=== PATIENT | male | born 1940 ===

== ENCOUNTER 2020-02-22 11:02 | Emergency (ER) | payer MEDICARE, SELFPAY ==
[2020-02-22 11:16] VITALS: BP 148/68; PULSE 68; RESP 17; TEMP 36.4; O2SAT 99; BMI 31.4
[2020-02-22] MEDS: Lidocaine HCl 2 % MPF 5 ML VIAL INFILTRATI ×2 (11:36→11:38)
--- NOTE | 2020-02-22 11:37 | ED_ITS ---
HPI - General Adult General Chief complaint: General Medical Stated complaint: R THUMB INFECTION Time Seen by Provider: 02/22/20 11:24 Source: patient Mode of arrival: ambulatory Limitations: no limitations History of Present Illness HPI narrative: Patient presents to ED for right thumb pain. Patient states lateral aspect of right thumb has been painful for one week. patient states he was on doxycyxline and the pain has persisited. patient states no recent blunt trauma to the hand. Related Data Previous Rx's Medication Instructions Recorded cephalexin [Keflex] 500 mg PO QID #28 cap 02/22/20 naproxen 500 mg PO BID PRN #20 tab 02/22/20 Allergies Allergy/AdvReac Type Severity Reaction Status Date / Time No Known Allergies [NKA] Allergy Verified 02/22/20 11:20 Review of Systems Review of Systems: Yes all other systems are reviewed and are negative Constitutional: Constitutional: Reports as per HPI and Reports no additional constitutional complaints Eyes: Eyes: Reports as per HPI and Reports no additional eye complaints ENT: Reports system reviewed and no additional complaints, except as documented and Reports as per HPI Cardiovascular: Cardiovascular: Reports as per HPI and Reports no additional cardiovascular complaints Respiratory: Respiratory: Reports as per HPI and Reports no additional respiratory complaints Gastrointestinal: Gastrointestinal: Reports as per HPI, Reports no additional gastrointestinal complaints and Denies abdominal pain Musculoskeletal: Musculoskeletal: Reports no additional musculoskeletal complaints Comments: Right thumb infection Neurologic: Reports system reviewed and no additional complaints, except as documented and Reports as per HPI Psychiatric: Psychiatric: Reports no additional psychiatric complaints and Reports as per HPI [facility] Past Medical History Medical History (Updated 02/22/20 @ 12:04 by BEVERLY Mantilla) Arthritis Surgical History (Updated 02/22/20 @ 11:19 by Marcie Henning RN) History of hip replacement Social History Social History Advance Directives: No Advance Directives Information Provided: No Physical Exam Vital Signs: Vital Signs: Vital Signs Temp Pulse Resp BP Pulse Ox 02/22/20 11:16 97.5 F 68 17 148/68 H 99 Body Mass Index 31.4 Const: General: cooperative, healthy appearing, comfortable, no acute distress, well developed, alert and awake Orientation/consciousness: patient oriented x3 HENMT: Head: Yes normal to inspection and Yes No palpable skull fracture present Eyes: General: appearance normal, both eyes and all related structures Neck: Neck: Yes normal visual inspection, Yes full ROM, Yes no lymphadenopathy and Yes no meningeal signs Chest: Chest palpation & inspection: normal inspection of the chest, normal palpation of entire chest wall and no localized rib tenderness Resp: Effort & Inspection: normal respiratory effort, able to speak in complete sentences, normal respiratory pattern, no grunting and not labored Auscultation: clear to auscultation bilaterally, no crackles, no rales, no rhonchi and no wheezes Cardio: Jugular venous distension: no JVD Heart sounds: S1 normal heart sound present and S2 normal heart sound present GI: Inspection: Yes normal to inspection, No abdominal wall ecchymosis and No Abdominal wall edema Percussion: Yes normal to percussion Auscultation: normal bowel sounds : General: No CVA tenderness and Yes no CVA tenderness Back/Spine/Pelvis: Back: no CVA tenderness, No CVA tenderness and No back tenderness Skin: Other: erythema on lateral side of right thumb Neuro: General: patient oriented x3, gait normal, no meningeal signs and CN's II-XI intact bilaterally Cranial nerves: Yes CN's II-XII intact bilaterally Extrem: Other: right thumb has slight erythema on the lateral aspect as tender. Negative for swelling of the thumb or any pus drainage. Patient has complete range of motion of thumb. Capillary refill intact. Course Course Course Narrative: Will perform I and D of paronychia. Physical exam does not indicate felon, arterial occlusion, or tenosynovitis. Patient has complete range of motion of all fingers including tone. Capillary refills are intact. Hand is not swollen. thumb is not swollen. Radial pulses intact Reevaluation(s) Reevaluation #1: Negative for any drainage of pus just slight blood. 6 mL of lidocaine 2% was used to anesthetize thumb. Size 11 blade was used for incision. Before anesthesia was performed Betadine and normal saline was used to clean the area. Patient form to follow with PCP. Patient does with Keflex antibiotics. patient states up-to-date with tetanus. Time: 12:02 Medical Decision Making [facility] Narrative Medical decision making narrative: parynochia Discharge Plan Discharge Clinical Impression: Paronychia of finger Patient Disposition: Home, Self-Care Instructions: Paronychia (ED) Additional Instructions: Return to the ED for increased swelling, redness, pus discharge, foul odor, fever, or chills. Prescriptions: New cephalexin [Keflex] 500 mg capsule 500 mg PO QID Qty: 28 RF: 0 naproxen 500 mg tablet 500 mg PO BID PRN (Reason: pain) Qty: 20 RF: 0 Referrals: Ministerio Gardner DO, MD [Primary Care Provider] - 2 days (thumb paronychia) Interventions: ED Discharge Assessment Last Done: 02/22/20 12:25 Discharge Date/Time: 02/22/20 12:26 Print Language: Telugu
== END 2020-02-22 12:26 | disposition home or self-care (01) ==
PROVIDERS: Emergency Provider Emergency Medicine; PCP Internal Medicine
DX: L03.011 Cellulitis of right finger (principal); M79.641 Pain in right hand
CPT/HCPCS: 10060; 99283; 99284

== ENCOUNTER 2020-03-10 16:36 | Emergency (ER) | payer MEDICARE, SELFPAY ==
--- NOTE | 2020-03-10 | XR_ITS ---
EXAMINATION: XR FINGER, RIGHT CLINICAL INFORMATION: Foreign body of the thumb COMPARISON: None TECHNIQUE: 3 views of the right thumb. FINDINGS: There is a faintly visible, thin, approximately 2 mm long opacity in superficial subcutaneous tissues of the anteromedial thumb. This projects anterior to the proximal phalanx of the thumb on the lateral view. Otherwise, no evidence of radiopaque foreign body. No acute fractures. 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 Osteoarthritis is mild at several MCP joints, and is moderate to severe at many interphalangeal joints. At the degenerated thumb interphalangeal joint, there is nonuniform joint space loss and marginal osteophyte formation. Old, healed fracture of the fifth metacarpal. XR/XR finger RT min 2V IMPRESSION: * No acute osseous injury. 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 * There appears to be a very small, faintly visible linear foreign body in superficial subcutaneous tissues of the thumb.
[2020-03-10 16:43] VITALS: BP 132/76; PULSE 70; RESP 16; TEMP 36.6; O2SAT 99; BMI 32.3
--- NOTE | 2020-03-10 19:54 | PC.NURSE ---
PT WENT IN TO REST ROOM AND SCRATCHED OUT SMALL FB FROM OWN FINGER PT STATES HE FELT RELEIF. PT WOUND TO RIGHT THUMB CLEANED WITH BATIDINE AND NS AND ANTIBIOTIC APPLIED TO FINGER COVERED WITH BAND AID.
--- NOTE | 2020-03-10 19:56 | ED_ITS ---
HPI - Extremity Problem General Chief complaint: Extremity Problem Stated complaint: needle in thumb Time Seen by Provider: 03/10/20 18:04 Source: patient Mode of arrival: ambulatory Limitations: no limitations History of Present Illness HPI Narrative: feels like he has a superficial body in the fat pad of the right thumb. Unsure where it is skin is intact. 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 No redness, swelling or discharge. Location: right Radiation: none Relieving factors: immobilization Exacerbating factors: palpation Associated symptoms: denies other symptoms Related Data Previous Rx's Medication Instructions Recorded cephalexin [Keflex] 500 mg PO QID #28 cap 02/22/20 naproxen 500 mg PO BID PRN #20 tab 02/22/20 Allergies Allergy/AdvReac Type Severity Reaction Status Date / Time No Known Allergies [NKA] Allergy Verified 02/22/20 11:20 Review of Systems Review of Systems: Constitutional: No Weight loss, No Fever, No Chills, No Night Sweats, No Fatigue, No Malaise ENT/Mouth: No Hearing loss, No Ear Pain, No Nasal Congestion, No Sinus Pain Eyes: No Eye Pain, No Swelling, No Redness, No Foreign Body, No Discharge, No Vision Changes Cardiovascular: No Chest Pain, No SOB, No Dyspnea on Exertion, No Orthopnea, No Edema, No Palpitations Respiratory: No Cough, No Sputum, No Wheezing, No Smoke Exposure, No Dyspnea Musculoskeletal: No joint pain, No Myalgias, No Joint Swelling Skin: No Skin Lesions, No rash Neuro: No Weakness Psych:No Social Issues Heme/Lymph: No Bruising, No Bleeding,No Lymphadenopathy Endocrine: No Polyuria, No Polydipsia, No Temperature Intolerance Yes all other systems are reviewed and are negative [facility] Past Medical History Attestation statement: The following information was validated with the patient. Medical History (Updated 03/10/20 @ 19:57 by Mac Kan NP) Arthritis Surgical History (Updated 02/22/20 @ 11:19 by Marcie Henning RN) History of hip replacement Social History Social History Smoked in Last 30 Days: No Use of substances other than those prescribed or required for medical reasons: No Advance Directives: No Advance Directives Information Provided: Yes Physical Exam Vital Signs: Vital Signs: Last Vital Signs Temp 97.8 F 03/10/20 16:43 Pulse 70 03/10/20 16:43 Resp 16 03/10/20 16:43 BP 132/76 03/10/20 16:43 Pulse Ox 99 03/10/20 16:43 Body Mass Index 32.3 Reviewed Const: General: cooperative and healthy appearing; No acute distress or intoxicated appearing Nutritional Appearance: average body habitus Orientation/consciousness: patient oriented x3 HENMT: Head: Yes normal to inspection Ears: hearing grossly normal bilaterally Chest: Chest palpation & inspection: normal inspection of the chest Resp: Effort & Inspection: normal respiratory effort Skin: Other: no obvious open skin or injury General skin exam: no rashes or lesions noted Neuro: General: patient oriented x3 Extrem: General: Yes normal to inspection MDM - Extremity (Nontraumatic) MDM Narrative Medical decision making narrative: distal thumb with no obvious injury or foreign body. X-ray shows some irregularity in the proximal anterior thumb over the base but he has no pain or discomfort over this area he has primarily for the distal thumb. 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 Discharge Plan Discharge Clinical Impression: Superficial foreign body Patient Disposition: Home, Self-Care Instructions: Soft Tissue Foreign Body (ED) Prescriptions: No Action cephalexin [Keflex] 500 mg capsule 500 mg PO QID Qty: 28 RF: 0 naproxen 500 mg tablet 500 mg PO BID PRN (Reason: pain) Qty: 20 RF: 0 Referrals: Justin Thomas MD [Physician] - 1 week
== END 2020-03-10 20:13 | disposition home or self-care (01) ==
PROVIDERS: Emergency Provider Emergency Medicine
DX: S60.351A Superficial foreign body of right thumb, initial encounter (principal); M79.641 Pain in right hand; Y28.9XXA Contact with unspecified sharp object, undetermined intent, initial encounter; Y93.9 Activity, unspecified; Y92.9 Unspecified place or not applicable; Y99.0 Civilian activity done for income or pay; Z79.899 Other long term (current) drug therapy
CPT/HCPCS: 73140; 99283; 99284

== ENCOUNTER 2020-11-03 07:07 | Emergency (ER) | payer MEDICARE, SELFPAY ==
--- NOTE | ~2020-11-03 | CT_ITS ---
EXAMINATION: CT HIP WITHOUT CONTRAST, LEFT CLINICAL INFORMATION: LT HIP PAIN, FELL 4 WEEKS AGO COMPARISON: None TECHNIQUE: Multidetector volumetric imaging was obtained through the left hip without contrast. Multiplanar reformatted images in coronal and sagittal orientations were submitted. This CT examination was performed using dose optimization techniques as appropriate, variously including the following: *Automated exposure control *Adjustment of mA and/or kV according to patient size (this includes techniques or standardized protocols for targeted exams where dose is matched to indication/reason for exam; i.e. extremities or head) *Use of iterative reconstruction technique DLP: 275 mGy-cm FINDINGS: No acute or subacute fractures are identified at the left hip. There is [id number] osteoarthritis of the left hip with prominent acetabular osteophytes, nonuniform joint space narrowing, and foci of subchondral cystic change at the acetabular rim. 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 Subtle osseous bridging is present across the anterior osteophytes of the left SI joint. Bridging osteophytes are also present at the L5-S1 level, partially imaged. Pubic symphysis is unremarkable. Prominent enthesopathic spurs are present at the greater trochanter. Diverticulosis is present in the sigmoid colon. Prostate gland is enlarged, measuring 6.3 cm in diameter. Fatty replacement is present of the gluteus minimus. The left hamstring tendons are ill-defined at the ischial tuberosity origin with surrounding fat stranding, likely due to tear. Components of the semimembranosus remain intact, though the long head of the biceps femoris and the semitendinosus are likely at least partially avulsed. CT/CT hip LT wo con IMPRESSION: 1. No acute fracture or malalignment at the left hip. 2. Ill-defined tear of the left hamstring tendons at the ischial tuberosity origin, possibly a subacute injury. If patient's symptoms localize to this region, consider correlation with MRI for further assessment 3. Mild to moderate osteoarthritis in the left hip.
--- NOTE | ~2020-11-03 | US_ITS ---
EXAMINATION: US VENOUS ULTRASOUND WITH DOPPLER LOWER EXTREMITY, LEFT CLINICAL INFORMATION: Pain and swelling. Post trauma COMPARISON: None TECHNIQUE: Ultrasound of the deep veins is performed from the hip to the calf with compression sonography and color and pulse Doppler assessment. Spectral analysis with color-flow imaging is performed. FINDINGS: There is normal venous compression and respiratory variation and augmented flow. The visualized common femoral vein, superficial femoral vein, profunda femoral vein, popliteal vein, and the trifurcation region shows no evidence of deep venous thrombosis. There is no significant popliteal fossa cyst. The peroneal vein is not visualized visualized. There is a small lymph node in the groin measuring 2.9 x 0.6 x 2.8 cm. There is mild edema in the calf. If the patient's symptoms persist, followup ultrasound in 5 days 7 days might be of value to exclude proximal propagation from a non-visualized calf vein. US/US venous duplex LE LT IMPRESSION: No DVT demonstrated in the left lower extremity. There is mild edema in the calf with peroneal vein not seen.
--- NOTE | ~2020-11-03 | XR_ITS ---
EXAMINATION: LUMBAR SPINE AND PELVIS AND LEFT HIP X-RAY CLINICAL INFORMATION: Pain post fall COMPARISON: None TECHNIQUE: 3 views of the lumbar spine, one view of the pelvis and 2 views of the left hip FINDINGS: Lumbar spine: There is mild curvature of the lower lumbar spine to the right. Bone alignment is otherwise normal. No fracture or dislocation is seen. There is multilevel degenerative disc disease, degenerative spondylosis and facet arthritis. Secondary spinal stenosis should be considered. There may be arthritis at the left L5 transverse process/sacral articulation. There is evidence of atherosclerotic disease. Pelvis and left hip x-ray no fracture or dislocation is seen. There is a right hip replacement in satisfactory position. There is arthritis at the left hip joint with joint space narrowing and osteophyte formation. There are degenerative changes of the sacroiliac joints. Soft tissues are unremarkable. XR/XR hip LT min 2V IMPRESSION: Lumbar spine: Severe degenerative changes. No fracture seen. Pelvis and left hip x-ray: Degenerative changes. No fracture or dislocation seen.
--- NOTE | ~2020-11-03 | XR_ITS ---
EXAMINATION: LUMBAR SPINE AND PELVIS AND LEFT HIP X-RAY CLINICAL INFORMATION: Pain post fall COMPARISON: None TECHNIQUE: 3 views of the lumbar spine, one view of the pelvis and 2 views of the left hip FINDINGS: Lumbar spine: There is mild curvature of the lower lumbar spine to the right. Bone alignment is otherwise normal. No fracture or dislocation is seen. There is multilevel degenerative disc disease, degenerative spondylosis and facet arthritis. Secondary spinal stenosis should be considered. There may be arthritis at the left L5 transverse process/sacral articulation. There is evidence of atherosclerotic disease. Pelvis and left hip x-ray no fracture or dislocation is seen. There is a right hip replacement in satisfactory position. There is arthritis at the left hip joint with joint space narrowing and osteophyte formation. There are degenerative changes of the sacroiliac joints. Soft tissues are unremarkable. XR/XR lumbar spine 2-3V IMPRESSION: Lumbar spine: Severe degenerative changes. No fracture seen. Pelvis and left hip x-ray: Degenerative changes. No fracture or dislocation seen.
[2020-11-03 07:25] VITALS: BP 113/60; PULSE 68; RESP 12; TEMP 36.5; O2SAT 96; BMI 31.8
--- NOTE | 2020-11-03 07:36 | ED_ITS ---
HPI - Extremity Injury (Lower) General Chief Complaint: General Medical Stated Complaint: fall - hip pain Time Seen by Provider: 11/03/20 07:35 Source: patient Mode of arrival: ambulatory Limitations: no limitations History of Present Illness MD complaint: hip injury, thigh injury and fall Onset (ago): week(s) (3) Type of Injury: blunt Place: home Severity: moderate Relieving factors: nothing Exacerbating factors: weight bearing and movement Context: fall (slipped in the shower hit L hip on granite) Associated symptoms: swelling (hematoma that resolved) Other symptoms: none Treatments prior to arrival: other (PCP started tramadol and he has been trying CBD gummies with some relief) Related Data Previous Rx's Medication Instructions Recorded cephalexin [Keflex] 500 mg PO QID #28 cap 02/22/20 naproxen 500 mg PO BID PRN #20 tab 02/22/20 oxycodone 5 mg PO TID PRN #14 tab 11/03/20 Allergies Allergy/AdvReac Type Severity Reaction Status Date / Time No Known Allergies [NKA] Allergy Verified 02/22/20 11:20 Review of Systems Review of Systems: Constitutional : No Fever, No Chills ENT/Mouth : No Ear Pain, No Hoarseness, No sore throat Eyes: No Eye Pain, No Swelling, No Redness, No Foreign Body Cardiovascular : No Chest Pain, No SOB, pos L leg swelling Respiratory : No Cough, No Dyspnea Gastrointestinal : No Nausea, No Vomiting, No Diarrhea, No abdominal Pain Genitourinary : No Dysuria, No Hematuria Musculoskeletal : positive joint pain, No Myalgias, No Joint Swelling Skin : No Skin lacerations, No rash Neuro : No Weakness, No Numbness, No Loss of Consciousness, No Dizziness, No Headache Psych : No Anxiety/Panic, No Depression Heme/Lymph: no easy bruising, no Lymphadenopathy Endocrine : No Polyuria, No Polydipsia All other systems reviewed and are negative PMFSH Past Medical History Attestation statement: The following information was validated with the patient. Medical History Arthritis Surgical History History of hip replacement Social History Social History (Updated 11/03/20 @ 07:49 by Sobeida Moran DO) Alcohol intake: current Alcohol intake frequency: holidays/special occasions only Alcohol type: beer and wine Patient Tobacco Use Status: Never used Tobacco Use of substances other than those prescribed or required for medical reasons: No Advance Directives: Yes Advance Directives Information Provided: Yes Advance Directives on File: No Physical Exam Vital Signs: Vital Signs: Last Vital Signs Temp 97.7 F 11/03/20 09:03 Pulse 70 11/03/20 09:56 Resp 18 11/03/20 09:56 BP 147/87 H 11/03/20 09:56 Pulse Ox 97 11/03/20 09:56 Body Mass Index 31.8 Appearance: Alert. Oriented X3. No acute distress. Eyes: Pupils equal, round and reactive to light. ENT: Pharynx normal. Neck: Normal inspection. Neck supple. CVS: Normal heart rate and rhythm. Pulses normal. Respiratory: No respiratory distress. Breath sounds normal. Abdomen: Soft and nontender. Back: no vert point tto Skin: Skin warm and dry. Normal skin color. Normal skin turgor. Extremities: L hip ttp laterally, L calf mild swelling wtih calf ttp Neuro: Oriented X 3. No motor deficit. No sensory deficit. Course Course Course Narrative: given the degree of his pain will obtain CT scan to r/o occult fracture hamstring tendon injury evident will call his orthopedist for sooner important - will place in immobilizer 3 weeks post injury I cannot get him until november per office - he has had multiple surgeries with [facility] at this time given 3 weeks post I do no think he would benefit from knee immoblizer MDM - Extremity Injury (Lower) MDM Narrative Medical decision making narrative: 80 yo male with arthritis not on AC therapy comes in after mechanical fall at home 3 weeks ago he notes his L hip area has just not gotten better, he has not had xrays at this time, will obtain xrays of L hip/lumbar spine, given swelling in LLE will obtain DVT study, dispo per results and findings. Lab Data Result diagrams: 11/03/20 08:05 11/03/20 08:05 Labs: Lab Results 11/03/20 11/03/20 11/03/20 Range/Units 08:05 08:05 08:05 WBC 6.2 (4.8-10.8) X10*3/uL RBC 4.37 L (4.60-5.80) X10*6/uL Hgb 13.3 L (14.0-18.0) g/dl Hct 41.0 L (42-52) % MCV 93.8 (80-98) fL MCH 30.4 (27.0-33.0) pg MCHC 32.4 (31.0-36.0) g/dl RDW 13.4 (11.0-16.0) % Plt Count 268 (160-400) X10*3/uL MPV 9.1 L (9.4-12.4) fL Immature Gran % (Auto) 0.2 (0.0-0.4) % Neut % (Auto) 67.5 (45-73) % Lymph % (Auto) 18.9 L (20-40) % [place] % (Auto) 10.1 (2-11) % Eos % (Auto) 2.7 (0-4) % Baso % (Auto) 0.6 (0-2) % Lymph # (Auto) 1.2 (1.2-4.9) X10*3/uL [place] # (Auto) 0.6 (0.1-1.2) X10*3/uL Eos # (Auto) 0.2 (0.0-0.4) X10*3/uL Baso # (Auto) 0.0 (0.0-0.2) X10*3/uL Abs Immat Gran (auto) 0.01 (0.00-0.03) X10*3/uL Absolute Neuts (auto) 4.2 (2.0-8.3) X10*3/uL Absolute Nucleated RBC 0.000 (0.0-0.012) X10*3/uL Nucleated RBC % (auto) 0.0 (0.0-0.2) /100WBC PT 11.4 (9.9-13.0) SEC INR 1.0 (0.9-1.1) APTT 39.6 H (24.1-38.0) SEC Sodium 143 (135-145) mmol/L Potassium 5.0 (3.3-5.1) mmol/L Chloride 106 (96-108) mmol/L Carbon Dioxide 29 (22-29) mmol/L Anion Gap 13 (12-20) BUN 18 H (9-16) mg/dL Creatinine 1.05 (0.5-1.4) mg/dL Estim Creat Clear Calc 64.5 Estimated GFR > 60 Random Glucose 105 (60-115) mg/dL Calcium 9.4 (8.4-10.2) mg/dL Discharge Plan Discharge Clinical Impression: Traumatic rupture of hamstring tendon Qualifiers: Encounter type: sequela Laterality: left Qualified Code(s): S76.312S - Strain of muscle, fascia and tendon of the posterior muscle group at thigh level, left thigh, sequela Patient Disposition: Home, Self-Care Instructions: Hamstring Injury (ED) Additional Instructions: return to ED for any worsening symptoms or concerns The left hamstring tendons are ill-defined at the ischial tuberosity origin with surrounding fat stranding, likely due to tear. Components of the semimembranosus remain intact, though the long head of the biceps femoris and the semitendinosus are likely at least partially avulsed. APPOINTMENT FOR YOU WAS SCHEDULED - 11/30 at 245pm please bring your CD with you Prescriptions: New oxycodone 5 mg tablet 5 mg PO TID PRN (Reason: pain) Qty: 14 RF: 0 No Action cephalexin [Keflex] 500 mg capsule 500 mg PO QID Qty: 28 RF: 0 naproxen 500 mg tablet 500 mg PO BID PRN (Reason: pain) Qty: 20 RF: 0
[2020-11-03 08:06] VITALS: BP 148/97; PULSE 74; RESP 17; O2SAT 96
[2020-11-03 08:12] LABS: MANUAL DIFF FLAG NO
[2020-11-03 08:16] LABS: Basophils Percent Auto 0.6 % (0-2); Eosinophils Absolute Auto 0.2 X10*3/uL (0.0-0.4); Eosinophils Percent Auto 2.7 % (0-4); Hemoglobin 13.3 g/dl (14.0-18.0); Imm Gran Abs Auto 0.01 X10*3/uL (0.00-0.03); Imm Gran Pct Auto 0.2 % (0.0-0.4); Lymphocytes Absolute Auto 1.2 X10*3/uL (1.2-4.9); Lymphocytes Percent Auto 18.9 % (20-40); Mean Corpuscular HGB Conc 32.4 g/dl (31.0-36.0); Mean Corpuscular Hemoglobin 30.4 pg (27.0-33.0); Mean Corpuscular Volume 93.8 fL (80-98); Mean Platelet Volume 9.1 fL (9.4-12.4); Monocytes Absolute Auto 0.6 X10*3/uL (0.1-1.2); Monocytes Percent Auto 10.1 % (2-11); Neutrophils Absolute Auto 4.2 X10*3/uL (2.0-8.3); Neutrophils Percent Auto 67.5 % (45-73); Platelet Count 268 X10*3/uL (160-400); Red Blood Count 4.37 X10*6/uL (4.60-5.80); Red Cell Distribution Width 13.4 % (11.0-16.0); White Blood Count 6.2 X10*3/uL (4.8-10.8)
[2020-11-03 08:22] LABS: Prothrombin Time 11.4 SEC (9.9-13.0)
[2020-11-03 08:24] LABS: Partial Thromboplastin Time 39.6 SEC (24.1-38.0)
[2020-11-03 08:38] LABS: Anion Gap 13 (12-20); Blood Urea Nitrogen 18 mg/dL (9-16); Calcium 9.4 mg/dL (8.4-10.2); Carbon Dioxide 29 mmol/L (22-29); Chloride 106 mmol/L (96-108); Creatinine Clr Calc Pharmacy 64.5; Estimated Glomerular Filt Rate > 60; Glucose Random 105 mg/dL (60-115); Sodium 143 mmol/L (135-145)
[2020-11-03 09:03] VITALS: BP 150/87; PULSE 69; RESP 17; TEMP 36.5; O2SAT 98
--- NOTE | 2020-11-03 09:43 | PC.NURSE ---
Patient is resting quietly in bed with eyes closed in no distress
[2020-11-03 09:56] VITALS: BP 147/87; PULSE 70; RESP 18; O2SAT 97
[2020-11-03] MEDS: oxyCODONE HCl Immed Release 5 MG TABLET PO (10:15)
== END 2020-11-03 10:40 | disposition home or self-care (01) ==
PROVIDERS: Emergency Provider Emergency Medicine; PCP Internal Medicine
DX: S76.312A Strain of muscle, fascia and tendon of the posterior muscle group at thigh level, left thigh, initial encounter (principal); R60.0 Localized edema; M25.552 Pain in left hip; M54.5 Low back pain; W18.30XA Fall on same level, unspecified, initial encounter; Y93.9 Activity, unspecified; Y92.9 Unspecified place or not applicable; Y99.9 Unspecified external cause status; Z79.899 Other long term (current) drug therapy
CPT/HCPCS: 36415; 72100; 73502; 73700; 80048; 85025; 85610; 85730; 93971; 99284

== ENCOUNTER 2022-09-21 16:46 | Emergency (ER) | payer MEDICARE, SELFPAY ==
--- NOTE | ~2022-09-21 | CT_ITS ---
EXAMINATION: CT HEAD WITHOUT CONTRAST CT CERVICAL SPINE WITHOUT CONTRAST CLINICAL INFORMATION: Trauma. COMPARISON: None. TECHNIQUE: Imaging was performed from the skull base to vertex without intravenous administration of contrast. In addition, helical noncontrast CT imaging was acquired through the cervical spine and source images were reviewed along with axial reconstructions and sagittal and coronal MPRs. [This CT examination was performed using dose optimization techniques as appropriate, variously including the following: *Automated exposure control *Adjustment of mA and/or kV according to patient size (this includes techniques or standardized protocols for targeted exams where dose is matched to indication/reason for exam; i.e. extremities or head) *Use of iterative reconstruction technique] DLP: 1264 mGy-cm FINDINGS: HEAD: No intracranial mass, hemorrhage, or midline shift is visualized. The ventricles and sulci are proportional. Physiologic mineralization of basal ganglia bilateral. No extra-axial collections are identified. Small retention cysts in the right sphenoid sinus. The mastoid air cells and middle ear cavities are normally aerated. CERVICAL SPINE: There is no evidence of acute cervical spine fracture. Vertebral bodies remain normal in height. Cervical vertebrae have normal alignment. There is multilevel degenerative spondylosis of the cervical spine with disc height narrowing and endplate spurs and facet joint arthrosis No pre- or paravertebral soft tissue abnormality is identified. Limited assessment of the lung apices is unremarkable. CT/CT cervical spine wo IV con IMPRESSION: 1. No acute intracranial pathology. 2. No CT evidence of acute cervical spine fracture or traumatic subluxation
--- NOTE | ~2022-09-21 | CT_ITS ---
EXAMINATION: CT HEAD WITHOUT CONTRAST CT CERVICAL SPINE WITHOUT CONTRAST CLINICAL INFORMATION: Trauma. COMPARISON: None. TECHNIQUE: Imaging was performed from the skull base to vertex without intravenous administration of contrast. In addition, helical noncontrast CT imaging was acquired through the cervical spine and source images were reviewed along with axial reconstructions and sagittal and coronal MPRs. [This CT examination was performed using dose optimization techniques as appropriate, variously including the following: *Automated exposure control *Adjustment of mA and/or kV according to patient size (this includes techniques or standardized protocols for targeted exams where dose is matched to indication/reason for exam; i.e. extremities or head) *Use of iterative reconstruction technique] DLP: 1264 mGy-cm FINDINGS: HEAD: No intracranial mass, hemorrhage, or midline shift is visualized. The ventricles and sulci are proportional. Physiologic mineralization of basal ganglia bilateral. No extra-axial collections are identified. Small retention cysts in the right sphenoid sinus. The mastoid air cells and middle ear cavities are normally aerated. CERVICAL SPINE: There is no evidence of acute cervical spine fracture. Vertebral bodies remain normal in height. Cervical vertebrae have normal alignment. There is multilevel degenerative spondylosis of the cervical spine with disc height narrowing and endplate spurs and facet joint arthrosis No pre- or paravertebral soft tissue abnormality is identified. Limited assessment of the lung apices is unremarkable. CT/CT head/brain wo IV con IMPRESSION: 1. No acute intracranial pathology. 2. No CT evidence of acute cervical spine fracture or traumatic subluxation
--- NOTE | 2022-09-21 19:15 | ED.GENADULT ---
HPI - General Adult General Chief complaint: Head Injury Stated complaint: fell lac. over right eye,memory loss Time Seen by Provider: 09/21/22 21:56 Source: patient, family () and RN notes reviewed Mode of arrival: ambulatory Limitations: no limitations History of Present Illness HPI narrative: 82-year-old male presents for evaluation of laceration above his left eye. He reports that around 1:45 a.m. he woke up with blood in his face He believes that he got up to use the bathroom and fell. He does not remember the actual fall Remembers cleaning blood off the floor and office face between 2 and 3:00 a.m. The patient did not tell his about his fall until he woke up around 630 this morning He denies any pain including facial pain, headaches, neck pain Denies any chest pain, shortness of breath Patient reports that he came to the hospital because ?the wound keeps bleeding. ? Related Data Previous Rx's Medication Instructions Recorded cephalexin 500 mg capsule (Keflex) 500 mg PO QID #28 caps 02/22/20 naproxen 500 mg tablet 500 mg PO BID PRN pain #20 tabs 02/22/20 oxycodone 5 mg tablet 5 mg PO TID PRN pain #14 tabs 11/03/20 Allergies Allergy/AdvReac Type Severity Reaction Status Date / Time diphenhydramine Allergy Hives Verified 09/21/22 19:26 [From Benadryl] omeprazole Allergy Hives Verified 09/21/22 19:28 Review of Systems Constitutional: Constitutional: Reports as per HPI, Denies chills, Denies fatigue, Denies fever(s) and Denies headache(s) ENT: Denies headache(s) Cardiovascular: Cardiovascular: Denies chest pain and Denies dyspnea Respiratory: Respiratory: Denies cough and Denies dyspnea Gastrointestinal: Gastrointestinal: Denies abdominal pain, Denies constipation and Denies vomiting Genitourinary: Genitourinary: Denies difficulty urinating and Denies dysuria Integumentary/Breasts: Comments: Laceration above left eye Neurologic: Denies headache(s) and Denies focal weakness Endocrine: Endocrine: Denies fatigue PMFSH Past Medical History Medical History Arthritis Surgical History History of hip replacement Social History Social History (Updated 11/03/20 @ 07:49 by Skyla Moran DO) Alcohol intake: current Alcohol intake frequency: holidays/special occasions only Alcohol type: beer and wine Patient Tobacco Use Status: Never used Tobacco Advance Directives: No Advance Directives Information Provided: Yes Physical Exam ED Vital Signs: Vital Signs - 24 hr 09/21/22 19:16 09/21/22 21:22 Temperature 97.9 F Pulse Rate 72 77 Respiratory Rate 18 18 Blood Pressure 159/81 H 155/79 H Pulse Oximetry 98 98 Oxygen Delivery Method Room Air Room Air BMI result Body Mass Index 30.4 Const General: healthy appearing, comfortable, no acute distress, alert and awake Nutritional Appearance: well nourished Orientation/consciousness: patient oriented x3 HENMT Other: Patient has a 3 cm linear laceration the left lateral orbit. No active bleeding. There is dried blood clot within the wound. Head: No normocephalic and No atraumatic Eyes Other: Significant ecchymosis to the entire left orbit. No cyst tenderness to palpation, no step-off deformities Visual Jeffrey: normal visual jeffrey by confrontation Alignment and Position: alignment normal Periorbital: periorbital findings abnormal Conjunctivae: conjunctivae normal Corneas: corneas abnormal on the right (Chronic right corneal ulceration (prior trauma)) Pupils: Equal, round and reactive pupils present and Pupils normal by confrontation EOM: EOMs intact bilaterally (Without entrapment) Neck Neck: Yes full ROM Resp Effort & Inspection: normal respiratory effort, able to speak in complete sentences, no audible wheezes and not labored Auscultation: clear to auscultation bilaterally Cardio Rate: regular rate Rhythm: regular rhythm Back/Spine/Pelvis Other: No C-spine tenderness Skin General skin exam: no rashes or lesions noted and elasticity normal Neuro General: patient oriented x3 Cranial nerves: Yes CN's II-XII intact bilaterally, Yes Equal, round and reactive pupils present and Yes Bilaterally intact EOM present Cognition (Neuro): normal cognition Extrem Other: Moving all extremities well without any obvious deformities Course Course Course Narrative: This is an RME: Additional HPI, ROS, PE not included below will be deferred to primary provider. This is a 78-atwn-gco-male, history of hypertension, presenting to the emergency department with complaint of fall during the night. Pt states that he went to bed at 12:00AM last night, and woke up at 1:45AM on the ground, covered in blood from his face. He states he does not remember the fall. states that patient had been slightly confused throughout the day today. But reports that patient is at his baseline. Patient is alert and oriented x4. Has ecchymosis noted to periorbital space, no entrapment. Pupil reactive, irregular pupil on the right reports this is chronic for him. Has laceration to left eyebrow that is likely going to need suture repair Plan: CT head and CT c spine ordered. tdap ordered Procedures Laceration Laceration 1: Site: face Side (If applicable): left Size (cm): 3 Description: linear Depth: simple, single layer Local Anesthetic: lidocaine 2% and with epi Amount of anesthesia used (mL): 4 Pre-repair: wound explored and irrigated extensively Skin layer closed with: other (Prolene) Size (cm): 6-0 Number of sutures: 6 Technique: simple, interrupted Medical Decision Making Medical Decision Making MDM Narrative: Patient had a fall sometime late last night into early this morning. He denies any symptoms from the fall. He has a laceration above his left eye which will require repair. He is still within 24 hour window for suturing. I cleaned the wound and removed the previous struck blood clots. Patient's tetanus will be updated. CT scan of the brain and cervical spine without significant traumatic injuries. The patient denies any symptoms at all including chest pain, shortness of breath, weakness, though pain, nausea vomiting. This happened approximately 20 hours ago. I do not see any indication to check labs now as the patient went the entire day feeling well, eating at normal and only came in because he had bleeding from his wound. Patient's vital signs are stable, he will follow up with his PCP Differential Diagnosis Contusion Concussion Laceration Intracranial hemorrhage Cervical strain Cervical fracture Discharge Plan Discharge Clinical Impression: Facial laceration Patient Disposition: Home, Self-Care Additional Instructions: You had 6 sutures placed today. These can be removed in 5-7 days. Keep the area clean and dry. Follow-up with your primary doctor This CT scan of your brain and cervical spine did not show any traumatic injury Prescriptions: No Action cephalexin [Keflex] 500 mg capsule 500 mg PO QID Qty: 28 0RF naproxen 500 mg tablet 500 mg PO BID PRN (Reason: pain) Qty: 20 0RF oxycodone 5 mg tablet 5 mg PO TID PRN (Reason: pain) Qty: 14 0RF Rx Instructions: tramadol is not working please stop
[2022-09-21 19:16] VITALS: BP 159/81; PULSE 72; RESP 18; TEMP 36.6; O2SAT 98; BMI 30.4
[2022-09-21 21:22] VITALS: BP 155/79; PULSE 77; RESP 18; O2SAT 98
[2022-09-21] MEDS: Diphth,Pertus(ACell),Tet Adult 0.5 ML SYRINGE IM (23:09)
== END 2022-09-21 23:21 | disposition home or self-care (01) ==
PROVIDERS: Emergency Provider Emergency Medicine
DX: S01.111A Laceration without foreign body of right eyelid and periocular area, initial encounter (principal); S00.81XA Abrasion of other part of head, initial encounter; M54.2 Cervicalgia; R51.9 Headache, unspecified; W01.10XA Fall on same level from slipping, tripping and stumbling with subsequent striking against unspecified object, initial encounter; Y93.9 Activity, unspecified; Y92.002 Bathroom of unspecified non-institutional (private) residence as the place of occurrence of the external cause; Y99.9 Unspecified external cause status; Z23 Encounter for immunization
CPT/HCPCS: 12052; 70450; 72125; 90471; 90715; 99283; 99284

== ENCOUNTER 2024-11-08 10:50 | Emergency (ER) | payer MEDICARE, SELFPAY ==
[2024-11-08] VITALS (11 sets, daily range): BP systolic 65–180; BP diastolic 43–120; PULSE 52–67; RESP 17–26; TEMP 36.5–36.6; O2SAT 96–99; BMI 31.4
--- NOTE | ~2024-11-08 | CT_ITS ---
CLINICAL HISTORY: head injury, fall CT cervical spine without contrast. COMPARISON: CT cervical spine dated 09/21/22 at 19:48 EDT FINDINGS: Normal vertebral body alignment. Vertebral body heights are maintained. No evidence of acute vertebral body injury. Skull base and intracranial structures appear normal. Calcified plaque present at the carotid bulbs bilaterally. C2-C3: Facet joint arthrosis. Uncovertebral joint hypertrophy. [id number] left neural foraminal narrowing. C3-C4: Facet joint arthrosis. Uncovertebral joint hypertrophy. Severe left and moderate right neural foraminal narrowing. C4-C5: Anterior marginal osteophytes. Uncovertebral joint hypertrophy. Facet joint arthrosis. Severe left and moderate right neural foraminal narrowing. C5-C6: Fusion of the vertebral bodies and posterior elements. Moderate bilateral neural foraminal narrowing. C6-C7: Prominent anterior marginal osteophytes. Uncovertebral joint hypertrophy. Mild bilateral neural foraminal narrowing. IMPRESSION: 1. No evidence of acute injury to the cervical spine. This document has been electronically signed by: Jesus Alberto Pedro MD on 11/08/2024 12:49:36
--- NOTE | ~2024-11-08 | CT_ITS ---
CLINICAL HISTORY: FALL, TRAUMA CT chest without IV contrast. COMPARISON: CT abdomen and pelvis dated 11/08/24 at 11:56 EDT FINDINGS: No pericardial effusion. Aortic annular and valve calcifications. Heavy tunica-biloxi coronary artery calcifications present within the LAD, circumflex and RCA. No pericardial effusion. Normal esophagus. No supraclavicular, mediastinal or axillary lymphadenopathy. No pneumothorax. No pleural effusion. No consolidation. Trachea and central airways are clear. No significant bronchial wall thickening. Findings of the upper abdomen are reported on CT of the abdomen and pelvis performed at the same time. Normal vertebral body alignment. No vertebral body height loss. Flowing marginal osteophytes present throughout the visualized lower cervical, thoracic and lumbar spine. Mild scoliosis. No evidence of acute vertebral body injury. Visualized bones of the shoulders appear intact. Tendon anchors present within the right humeral head. Advanced degenerative changes of the bilateral shoulders. Sternum appears intact. No rib fracture identified. IMPRESSION: 1. No acute intrathoracic findings. 2. Coronary artery atherosclerosis. This document has been electronically signed by: Jesus Alberto Pedro MD on 11/08/2024 13:06:10
--- NOTE | ~2024-11-08 | XR_ITS ---
CLINICAL HISTORY: pain, injury Four views of the right wrist. COMPARISON: None provided. FINDINGS: Distal radius and ulna appear intact. Radiocarpal joint space narrowing. Advanced degenerative changes of the right wrist with joint space narrowing. Scapholunate interval is maintained. Osteophytes present of the triscaphe and 1st CMC joints. Chronic healed fracture deformity of the 5th metacarpal. Metacarpals otherwise appear intact. IMPRESSION: 1. No radiographic evidence of acute injury to the right wrist. 2. 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 3. Chronic healed fracture deformity of the 5th metacarpal. This document has been electronically signed by: Jesus Alberto Pedro MD on 11/08/2024 13:56:35
--- NOTE | ~2024-11-08 | XR_ITS ---
CLINICAL HISTORY: pain, injury Three views of the right hand. COMPARISON: None provided. FINDINGS: Distal radius and ulna appear intact. Decreased radiocarpal joint space. Advanced degenerative changes of the right wrist with marked joint space loss. Degenerative changes of the triscaphe and 1st CMC joints with small osteophytes. Chronic healed fracture deformity of the 5th metacarpal. Remaining metacarpals appear intact. Phalanges appear intact. Interphalangeal joint space narrowing with prominent osteophytes. IMPRESSION: 1. No radiographic evidence of acute injury to the right hand. 2. Advanced degenerative changes of the right wrist and hand. 3. Chronic healed fracture deformity of the 5th metacarpal. This document has been electronically signed by: Jesus Alberto Pedro MD on 11/08/2024 14:00:59
--- NOTE | ~2024-11-08 | CT_ITS ---
CLINICAL HISTORY: head injury, fall CT head without contrast. COMPARISON: CT head dated 09/21/22 at 19:48 EDT FINDINGS: Cutaneous juanita overlie the upper calvarium. Minimal mucosal thickening present within the maxillary sinuses. The mastoid air cells are clear. No calvarial fracture. Atherosclerotic intracranial vasculature. No evidence for mass or mass effect. No intracranial hemorrhage or abnormal extra-axial fluid collection. Basal ganglia mineralization present bilaterally. The ventricles are proportional with the degree of moderate global cerebral volume loss without evidence of hydrocephalus. Basilar cisterns are patent. There are periventricular areas of low attenuation compatible with mild white matter small vessel disease. Posterior fossa appears unremarkable. IMPRESSION: 1. No acute intracranial findings. This document has been electronically signed by: Jesus Alberto Pedro MD on 11/08/2024 13:09:07
--- NOTE | ~2024-11-08 | CT_ITS ---
CLINICAL HISTORY: head injury, fall CT maxillofacial without contrast. COMPARISON: None provided. FINDINGS: Soft tissue edema overlying the left periorbital region and supraorbital region. Bony orbits appear intact bilaterally. Globes appear intact bilaterally. No postseptal or retrobulbar hematoma. Nasal bones appear intact. Nasal septum is mildly deviated to the left. Mild mucosal thickening present within the maxillary sinuses. Mucosal retention cyst present within the sphenoid sinus. Mastoid air cells are clear. Zygomatic arches and pterygoid plates are intact. Maxilla and nasal spine of the maxilla appear intact. Temporomandibular joints are intact. Mandible appears intact. No skull base fracture identified. Visualized portions of the upper cervical spine appear unremarkable. IMPRESSION: 1. Soft tissue edema/hematoma overlying the left periorbital region. No evidence of injury to the underlying orbital soft tissues or facial bones. This document has been electronically signed by: Jesus Alberto Pedro MD on 11/08/2024 13:08:30
--- NOTE | ~2024-11-08 | CT_ITS ---
CLINICAL HISTORY: FALL, TRAUMA CT abdomen and pelvis without IV contrast. COMPARISON: None provided. FINDINGS: Coronary artery calcifications present within the LAD, circumflex and RCA. Aortic annular and valve calcifications. Non-contrast appearance of the liver, spleen and pancreas are without evidence of injury. Normal gallbladder. Multiple well-defined hypoattenuating lesions present within the liver measuring up to 3.1 cm, likely representing hepatic cysts or hemangiomas. Normal adrenal glands. Non-contrast appearance of the kidneys are without evidence of injury. No hydronephrosis. Nonobstructing 2 mm left renal calculus. No free intraperitoneal fluid or air. No mesenteric edema. No bowel obstruction. Normal appendix. No mesenteric or retroperitoneal lymphadenopathy. No evidence of abdominal aorta injury. Moderate aortoiliac atherosclerotic vascular calcifications. 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 Colonic diverticulosis without evidence of diverticulitis. No evidence of urinary bladder injury. Urinary bladder calcifications present. No free fluid present in the pelvis. Prostate is poorly visualized secondary to artifact from hip arthroplasty. Likely prostate calcifications present. No inguinal lymphadenopathy. Partially visualized right total hip arthroplasty appears in anatomic alignment. Visualized portions of the right femur appear intact. Visualized portions of the proximal left femur appear intact. Bones of the pelvis including the sacrum appear intact. Rightward curvature of the lower lumbar spine. Advanced multilevel degenerative changes of the lumbar spine. Vertebral body heights are maintained. No evidence of acute vertebral body injury. No lower rib fracture identified. IMPRESSION: 1. No acute intra-abdominal or pelvic findings. No evidence of solid organ injury on this noncontrast exam. This document has been electronically signed by: Jesus Alberto Pedro MD on 11/08/2024 12:57:09
--- NOTE | 2024-11-08 11:25 | ED_ITS ---
HPI - General Adult General Chief complaint: Fall Stated complaint: MECHANICAL FALL ON PAVEMENT Time Seen by Provider: 11/08/24 11:22 Source: patient, family (patient's son) and EMS Mode of arrival: EMS Limitations: no limitations History of Present Illness ED Provider: Isatu Carlos PA-C HPI narrative: Patient is an 84 year old assigned male at with a history of multiple right eye surgeries, hypertension, and GERD presenting to the emergency department today with a head laceration after a trip and fall. Patient states that he was attempting to climb over a car stop bumper when his back leg got stuck on it and he tripped forward - striking his head. Patient did not lose consciousness. Patient is not on any anticoagulation medication however, he is on Celebrex for arthritis. Patient denies any dizziness, lightheadedness, abdominal pain, nausea, vomiting, fever, chills, blurry vision, double vision, loss of vision, chest pain, difficulty breathing, shortness of breath, back pain, night sweats, pain with urination, increased urinary frequency, increased urinary urgency, blood in his urine or stool, syncope or a near syncopal episode, bowel incontinence, bladder incontinence, or any other complaints at this time. Relieving factors: none Exacerbating factors: none Associated symptoms: denies other symptoms Treatments prior to arrival: none Related Data Previous Rx's ?Medication ?Instructions ?Recorded cephalexin 500 mg capsule (Keflex) 500 mg PO QID #28 c aps 02/22/20 naproxen 500 mg tablet 500 mg PO BID PRN pain #20 t abs 02/22/20 oxycodone 5 mg tablet 5 mg PO TID PRN pain #14 tab s 11/03/20 amoxicillin 875 mg-potassium 1 tab PO BID 7 days #14 t abs 11/08/24 clavulanate 125 mg tablet Allergies Allergy/AdvReac Type Severity Reaction Status Date / Time diphenhydramine (From Allergy Hives Verified 11/08/24 10:57 Benadryl) omeprazole Allergy Hives Verified 11/08/24 10:57 Review of Systems 2 Constitutional: Constitutional: Reports no additional constitutional complaints, Denies chills, Denies fever(s) and Denies night sweats Comments: left forehead laceration Eyes: Eyes: Reports no additional eye complaints, Denies blurry vision, Denies change in vision, Denies diplopia, Denies eye discharge, Denies loss of vision and Denies eye pain ENT: Denies dizziness Cardiovascular: Cardiovascular: Reports no additional cardiovascular complaints, Denies chest pain, Denies lightheadedness, Denies Loss of Consciousness and Denies dyspnea Respiratory: Respiratory: Reports no additional respiratory complaints and Denies dyspnea Gastrointestinal: Gastrointestinal: Reports no additional gastrointestinal complaints, Denies abdominal pain, Denies melena, Denies hematochezia, Denies change in bowel habits and Denies change in stool character Genitourinary: Genitourinary: Reports no additional male genitourinary complaints, Denies hematuria, Denies oliguria, Denies difficulty urinating, Denies dysuria, Denies urinary frequency, Denies urinary hesitancy, Denies urinary incontinence and Denies urinary urgency Musculoskeletal: Musculoskeletal: Reports no additional musculoskeletal complaints, Denies numbness and Denies tingling Neurologic: Denies dizziness, Denies loss of vision, Denies numbness and Denies tingling Psychiatric: Psychiatric: Reports no additional psychiatric complaints Endocrine: Endocrine: Reports no additional endocrine complaints Hematologic/Lymphatic: Hematologic/Lymphatic: Reports no additional hematologic/lymphatic complaints Allergic/Immunologic: Allergic/Immunologic: Reports no additional allergic/immunologic complaints [facility] Past Medical History Attestation statement: The following information was validated with the patient. (all information validated with the patient's son) Source: old records reviewed, obtained from family (patient's son provided additional history and confirmed the history provided by the patient) and nursing notes reviewed Medical History Arthritis Surgical History History of hip replacement Social History Social History Alcohol intake: current Alcohol intake frequency: holidays/special occasions only Alcohol type: beer and wine Patient Tobacco Use Status: Never used Tobacco Physical Exam ED Vital Signs: Vital Signs - 24 hr 11/08/24 10:52 11/08/24 11:32 11/08/24 11:36 Temperature 97.8 F 97.8 F 97.8 F Pulse Rate 67 52 65 Respiratory Rate 18 20 26 H Blood Pressure 159/88 H 95/64 65/43 L Pulse Oximetry 98 Oxygen Delivery Method Room Air Oxygen Flow Rate 11/08/24 11:47 11/08/24 11:55 11/08/24 12:41 Temperature 97.7 F 97.9 F Pulse Rate 57 60 58 Respiratory Rate 18 18 17 Blood Pressure 112/62 97/60 124/70 Pulse Oximetry 97 Oxygen Delivery Method Nasal Cannula Oxygen Flow Rate 2 11/08/24 12:50 11/08/24 12:53 11/08/24 13:12 Temperature 97.8 F 97.8 F Pulse Rate 57 56 59 Respiratory Rate 19 18 19 Blood Pressure 133/81 140/81 H Pulse Oximetry 99 Oxygen Delivery Method Nasal Cannula Oxygen Flow Rate 2 11/08/24 14:07 11/08/24 15:56 Temperature 97.7 F Pulse Rate 58 58 Respiratory Rate 17 17 Blood Pressure 117/84 117/84 Pulse Oximetry 97 97 Oxygen Delivery Method Room Air Room Air Oxygen Flow Rate BMI result Body Mass Index 31.4 Const General: cooperative, no acute distress, alert and awake Nutritional Appearance: well nourished Orientation/consciousness: patient oriented x3 HENMT Ears: hearing grossly normal bilaterally and external ears normal General nose exam: Normal external nose present, no nasal discharge noted and no epistaxis Face images: 2 1. 7cm laceration - profusely bleeding Mouth: Normal oral and palatal mucosa present, no drooling and no muffled voice Eyes Other: significant bruising present to the left periorbital structures - left conjunctiva has small subconjunctival hemorrhage patient's right eye has partial calcification vs. 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) Conjunctivae: conjunctivae normal Pupils: Equal, round and reactive pupils present EOM: EOMs intact bilaterally Neck Neck: Yes normal visual inspection, Yes full ROM and Yes no lymphadenopathy Resp Effort & Inspection: normal respiratory effort and able to speak in complete sentences Neuro General: patient oriented x3, moves all extremities and CN's II-XI intact bilaterally Cranial nerves: Yes Equal, round and reactive pupils present Cognition (Neuro): normal cognition Extrem General: Yes normal to inspection, Yes full ROM and Yes capillary refill normal Psych Appearance: grossly normal Mental Status: mental status grossly normal Affect: normal affect Attitude: cooperative Thought process: Normal thought process present Thought content: Normal thought content present Insight: Good insight present (Psych) Medications Administered Discontinued Medications Generic Name Dose Route Start Last Admin Trade Name Radha PRN Reason Stop Dose Admin Ampicillin Sodium/Sulbactam 100 mls @ 200 mls/hr 11/08/24 14:12 11/08/24 14:53 Sodium 1.5 gm/ Sodium Chloride IV 11/08/24 14:41 Infused ONCE ONE Infusion Procedures Laceration Laceration 1: Site: face Side (If applicable): left Size (cm): 7 Description: linear Pre-repair: irrigated extensively Skin layer closed with: other (juanita) Size (cm): other (juanita) Number of sutures: 10 Technique: other (juanita) Medical Decision Making Medical Decision Making MDM Narrative: Patient is an 84 year old assigned male at with a history of multiple right eye surgeries, hypertension, and GERD presenting to the emergency department today with a head laceration after a trip and fall. 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 Patient's laceration was immediately dressed with gauze and direct pressure, however, bleeding continued - semi heavily. At that time, I began to use suction to clear the wound field and located several small vessels that were actively bleeding, none of which arterial. I used silver nitrate applicator sticks to lightly cauterize the area and was successful in doing so, resulting in significantly less bleeding. However, during this part of the procedure, the patient vasovagaled - becoming diaphoretic and hypotensive. 2 units of emergency release blood were called for / ordered / then hung. Patient's laceration was stapled closed with 10 juanita, as directed by my attending physician, Dr. Bloom. Wound edges well approximated. Patient lost approximately 200ml of blood while bleeding was being adressed. Per Dr. Bloom's recommendation, the patient was epña scanned and I continued to monitor the patient. Patient's lacerated area did not swell - signaling the vessels were successfully ligated. During the laceration repair, the patient's left silver wrist watch and ward necklace were removed and given to his son at the bed side. Patient's initial blood work was unremarkable. Patient's CT head, c-spine, chest, face, and abdomen/pelvis showed no acute process. Patient's right hand and wrist x-ray showed no acute process. Patient recovered well from his vasovagal episode and repeat CBC was drawn showing a mild increase in his WBC count which is consistent with trauma / stress reaction but his hgb remained stable. I explained my physical exam findings as well as all test results to the patient and the patient's son. I answered all questions asked by the patient and the patient's son. I stressed the importance of the patient taking his medication as directed (either prescribed or as the over the counter packaging recommends). I stressed the importance of the patient following up with his primary care provider. I stressed the importance of the patient returning to the emergency department immediately if he were to develop any dizziness, shortness of breath, difficulty breathing, chest pain, blurry vision, loss of vision, nausea, vomiting, abdominal pain, fever, chills, back pain, or any other complaints. Patient and the patient's son verbalized agreement and understanding with this treatment plan and discharge. Patient declined a tetanus booster. Differential Diagnosis Differential Diagnoses: The differential diagnosis associated with the presentation includes Complex laceration Fall Admission/Observation Consideration of admission/observation: Escalation of care including admission/observation considered Patient would have been admitted to the hospital had his work up had any findings where hospital admission was appropriate and his clinical presentation warranted hospital admission. Lab Data [facility] Lab Attestation statement: I reviewed the patient's lab results. My interpretation of these results are in the [facility] Rationale portion of this note. 11/08/24 13:18 11/08/24 11:24 Labs: Lab Results 11/08/24 11/08/24 Range/Units 11:24 13:18 WBC 6.9 12.2 H (4.8-10.8) X10*3/uL RBC 4.15 L 4.57 L (4.60-5.80) X10*6/uL Hgb 12.8 L 14.1 (14.0-18.0) g/dl Hct 38.2 L 41.0 L (42.0-52.0) % MCV 92.0 89.7 (80.0-98.0) fL MCH 30.8 30.9 (27.0-33.0) pg MCHC 33.5 34.4 (31.0-36.0) g/dl RDW 13.6 14.0 (11.0-16.0) % Plt Count 225 200 (160-400) X10*3/uL MPV 9.5 9.3 L (9.4-12.4) fL Immature Gran % (Auto) 0.4 0.5 H (0.0-0.4) % Neut % (Auto) 61.0 79.0 H (45-73) % Lymph % (Auto) 23.0 11.4 L (20-40) % Hartley % (Auto) 12.1 H 7.7 (2-11) % Eos % (Auto) 2.6 0.9 (0-4) % Baso % (Auto) 0.9 0.5 (0-2) % Lymph # (Auto) 1.6 1.4 (1.2-4.9) X10*3/uL Hartley # (Auto) 0.8 0.9 (0.1-1.2) X10*3/uL Eos # (Auto) 0.2 0.1 (0.0-0.4) X10*3/uL Baso # (Auto) 0.1 0.1 (0.0-0.2) X10*3/uL Abs Immat Gran (auto) 0.03 0.06 H (0.00-0.03) X10*3/uL Absolute Neuts (auto) 4.2 9.7 H (2.0-8.3) x10*3/uL Absolute Nucleated RBC 0.000 0.000 (0.0-0.012) X10*3/uL Nucleated RBC % (auto) 0.0 0.0 (0.0-0.2) /100WBC Hold Purple Top SEE NOTE PT 11.6 (10.9-12.4) SEC INR 1.0 (0.9-1.1) Hold Blue Top Cancelled Sodium 140 (135-145) mmol/L Potassium 4.5 (3.3-5.1) mmol/L Chloride 110 H (96-108) mmol/L Carbon Dioxide 25 (22-29) mmol/L Anion Gap 10 L (12-20) BUN 16 (9-16) mg/dL Creatinine 1.04 (0.5-1.4) mg/dL Estim Creat Clear Calc 62.0 Estimated GFR > 60 Random Glucose 126 H (60-115) mg/dL Calcium 8.4 D (8.4-10.2) mg/dL Magnesium 1.9 (1.6-2.6) mg/dL Total Bilirubin 0.5 (0.0-1.0) mg/dL Direct Bilirubin 0.2 (0.0-0.5) mg/dL AST 19 (5-37) U/L ALT 16 (0-40) U/L Alkaline Phosphatase 57 (39-117) U/L B-Natriuretic Peptide 76 (<100) pg/mL Total Protein 6.6 (6.5-8.0) g/dL Albumin 3.9 (3.5-5.0) g/dL Blood Type O Positive Antibody Screen NEGATIVE Crossmatch See Detail Independent Interpretation I performed an independent interpretation of an: Plain X-Ray and CT Scan Interpretation: My interpretation is in agreement with the radiologist's impression of these imaging studies. L Report Number: [id number]: Total DLP = 410.00 mGy-cm CLINICAL HISTORY: head injury, fall CT cervical spine without contrast. COMPARISON: CT cervical spine dated 09/21/22 at 19:48 EDT FINDINGS: Normal vertebral body alignment. Vertebral body heights are maintained. No evidence of acute vertebral body injury. Skull base and intracranial structures appear normal. Calcified plaque present at the carotid bulbs bilaterally. C2-C3: Facet joint arthrosis. Uncovertebral joint hypertrophy. [id number] left neural foraminal narrowing. C3-C4: Facet joint arthrosis. Uncovertebral joint hypertrophy. Severe left and moderate right neural foraminal narrowing. C4-C5: Anterior marginal osteophytes. Uncovertebral joint hypertrophy. Facet joint arthrosis. Severe left and moderate right neural foraminal narrowing. C5-C6: Fusion of the vertebral bodies and posterior elements. Moderate bilateral neural foraminal narrowing. C6-C7: Prominent anterior marginal osteophytes. Uncovertebral joint hypertrophy. Mild bilateral neural foraminal narrowing. IMPRESSION: 1. No evidence of acute injury to the cervical spine. This document has been electronically signed by: Jesus Alberto Pedro MD on 11/08/2024 12:49:36 Dictated By: Jesus Alberto Pedro MD Signed By: Electronically signed by Jesus Alberto Pedro MD 11/08/24 4650 Report Number: [id number]: Total DLP = 1482.00 mGy-cm CLINICAL HISTORY: FALL, TRAUMA CT abdomen and pelvis without IV contrast. COMPARISON: None provided. FINDINGS: Coronary artery calcifications present within the LAD, circumflex and RCA. Aortic annular and valve calcifications. Non-contrast appearance of the liver, spleen and pancreas are without evidence of injury. Normal gallbladder. Multiple well-defined hypoattenuating lesions present within the liver measuring up to 3.1 cm, likely representing hepatic cysts or hemangiomas. Normal adrenal glands. Non-contrast appearance of the kidneys are without evidence of injury. No hydronephrosis. Nonobstructing 2 mm left renal calculus. No free intraperitoneal fluid or air. No mesenteric edema. No bowel obstruction. Normal appendix. No mesenteric or retroperitoneal lymphadenopathy. No evidence of abdominal aorta injury. Moderate aortoiliac atherosclerotic vascular calcifications. 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 Colonic diverticulosis without evidence of diverticulitis. No evidence of urinary bladder injury. Urinary bladder calcifications present. No free fluid present in the pelvis. Prostate is poorly visualized secondary to artifact from hip arthroplasty. Likely prostate calcifications present. No inguinal lymphadenopathy. Partially visualized right total hip arthroplasty appears in anatomic alignment. Visualized portions of the right femur appear intact. Visualized portions of the proximal left femur appear intact. Bones of the pelvis including the sacrum appear intact. Rightward curvature of the lower lumbar spine. Advanced multilevel degenerative changes of the lumbar spine. Vertebral body heights are maintained. No evidence of acute vertebral body injury. No lower rib fracture identified. IMPRESSION: 1. No acute intra-abdominal or pelvic findings. No evidence of solid organ injury on this noncontrast exam. This document has been electronically signed by: Jesus Alberto Pedro MD on 11/08/2024 12:57:09 Dictated By: Jesus Alberto Pedro MD Signed By: Electronically signed by Jesus Alberto Pedro MD 11/08/24 6798 Report Number: [id number]: Total DLP = 586.00 mGy-cm CLINICAL HISTORY: FALL, TRAUMA CT chest without IV contrast. COMPARISON: CT abdomen and pelvis dated 11/08/24 at 11:56 EDT FINDINGS: No pericardial effusion. Aortic annular and valve calcifications. Heavy [place] coronary artery calcifications present within the LAD, circumflex and RCA. No pericardial effusion. Normal esophagus. No supraclavicular, mediastinal or axillary lymphadenopathy. No pneumothorax. No pleural effusion. No consolidation. Trachea and central airways are clear. No significant bronchial wall thickening. Findings of the upper abdomen are reported on CT of the abdomen and pelvis performed at the same time. Normal vertebral body alignment. No vertebral body height loss. Flowing marginal osteophytes present throughout the visualized lower cervical, thoracic and lumbar spine. Mild scoliosis. No evidence of acute vertebral body injury. Visualized bones of the shoulders appear intact. Tendon anchors present within the right humeral head. Advanced degenerative changes of the bilateral shoulders. Sternum appears intact. No rib fracture identified. IMPRESSION: 1. No acute intrathoracic findings. 2. Coronary artery atherosclerosis. This document has been electronically signed by: Jesus Alberto Pedro MD on 11/08/2024 13:06:10 Dictated By: Jesus Alberto Pedro MD Signed By: Electronically signed by Jesus Alberto Pedro MD 11/08/24 1307 Report Number: [id number]: Total DLP = 173.00 mGy-cm CLINICAL HISTORY: head injury, fall CT maxillofacial without contrast. COMPARISON: None provided. FINDINGS: Soft tissue edema overlying the left periorbital region and supraorbital region. Bony orbits appear intact bilaterally. Globes appear intact bilaterally. No postseptal or retrobulbar hematoma. Nasal bones appear intact. Nasal septum is mildly deviated to the left. Mild mucosal thickening present within the maxillary sinuses. Mucosal retention cyst present within the sphenoid sinus. Mastoid air cells are clear. Zygomatic arches and pterygoid plates are intact. Maxilla and nasal spine of the maxilla appear intact. Temporomandibular joints are intact. Mandible appears intact. No skull base fracture identified. Visualized portions of the upper cervical spine appear unremarkable. IMPRESSION: 1. Soft tissue edema/hematoma overlying the left periorbital region. No evidence of injury to the underlying orbital soft tissues or facial bones. This document has been electronically signed by: Jesus Alberto Pedro MD on 11/08/2024 13:08:30 Dictated By: Jesus Alberto Pedro MD Signed By: Electronically signed by Jesus Alberto Pedro MD 11/08/24 1309 Report Number: [id number]: Total DLP = 1066.00 mGy-cm CLINICAL HISTORY: head injury, fall CT head without contrast. COMPARISON: CT head dated 09/21/22 at 19:48 EDT FINDINGS: Cutaneous junaita overlie the upper calvarium. Minimal mucosal thickening present within the maxillary sinuses. The mastoid air cells are clear. No calvarial fracture. Atherosclerotic intracranial vasculature. No evidence for mass or mass effect. No intracranial hemorrhage or abnormal extra-axial fluid collection. Basal ganglia mineralization present bilaterally. The ventricles are proportional with the degree of moderate global cerebral volume loss without evidence of hydrocephalus. Basilar cisterns are patent. There are periventricular areas of low attenuation compatible with mild white matter small vessel disease. Posterior fossa appears unremarkable. IMPRESSION: 1. No acute intracranial findings. This document has been electronically signed by: Jesus Alberto Pedro MD on 11/08/2024 13:09:07 Dictated By: Jesus Alberto Pedro MD Signed By: Electronically signed by Jesus Alberto Pedro MD 11/08/24 1310 CLINICAL HISTORY: pain, injury Four views of the right wrist. COMPARISON: None provided. FINDINGS: Distal radius and ulna appear intact. Radiocarpal joint space narrowing. Advanced degenerative changes of the right wrist with joint space narrowing. Scapholunate interval is maintained. Osteophytes present of the triscaphe and 1st CMC joints. Chronic healed fracture deformity of the 5th metacarpal. Metacarpals otherwise appear intact. IMPRESSION: 1. No radiographic evidence of acute injury to the right wrist. 2. 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 3. Chronic healed fracture deformity of the 5th metacarpal. This document has been electronically signed by: Jesus Alberto Pedro MD on 11/08/2024 13:56:35 Dictated By: Jesus Alberto Pedro MD Signed By: Electronically signed by Jesus Alberto Pedro MD 11/08/24 1357 CLINICAL HISTORY: pain, injury Three views of the right hand. COMPARISON: None provided. FINDINGS: Distal radius and ulna appear intact. Decreased radiocarpal joint space. Advanced degenerative changes of the right wrist with marked joint space loss. Degenerative changes of the triscaphe and 1st CMC joints with small osteophytes. Chronic healed fracture deformity of the 5th metacarpal. Remaining metacarpals appear intact. Phalanges appear intact. Interphalangeal joint space narrowing with prominent osteophytes. IMPRESSION: 1. No radiographic evidence of acute injury to the right hand. 2. Advanced degenerative changes of the right wrist and hand. 3. Chronic healed fracture deformity of the 5th metacarpal. This document has been electronically signed by: Jesus Alberto Pedro MD on 11/08/2024 14:00:59 Dictated By: Jesus Alberto Pedro MD Signed By: Electronically signed by Jesus Alberto Pedro MD 11/08/24 1659 Radiology Impression Discussion of test interpretation with radiology: I have reviewed the radiologist's reading. Independent Historian Clinical information obtained from an independent historian. History obtained from or confirmed by: EMS (EMS provided additional history and confirmed the history provided by the patient. ) and Other (patient's son provided additional history and confirmed the history provided by the patient. ) Critical Care Time Critical Care Time Critical Care Time: Yes Total Critical Care Time: 68 Attestation: I spent 69 minutes of Critical Care Time with this patient. This does not include time spent on separately reported billable procedures. Discharge Plan Discharge Clinical Impression: Fall, Forehead laceration Patient Disposition: Home, Self-Care Instructions: Laceration (DC), Fall Prevention for Older Adults (ED), Staple Care (ED) Additional Instructions: Your imaging today is reassuring there is no intracranial injury or injury in the c-spine, chest, or abdomen/pelvis. Your 10 juanita should be removed in 10-14 days. You must perform daily wound checks and dressing changes. Do NOT get the affected area wet. Once your juanita are removed and whatever scabbing falls away, apply sunscreen every day to the area for ONE FULL YEAR to mitigate scarring. Please consider using a walker or a cane when ambulating. Take your antibiotic as prescribed. Follow up with your primary care provider. Return to the emergency department immediately if your symptoms worsen or if you develop any numbness, tingling, dizziness, shortness of breath, difficulty breathing, chest pain, blurry vision, loss of vision, nausea, vomiting, abdominal pain, fever, chills, back pain, or any other complaints. Please see the information below about our Patient Portal. If you are not yet enrolled in the [facility] Patient Portal, you will receive an enrollment email invitation following your visit to any [facility] care setting. You may also self-enroll in the Patient Portal by visiting our website: [email or web address] The following information is required to access the Patient Portal: - Your [facility] Medical Record Number - Your personal home email address (must match what is in your electronic medical record, Registration staff can assist with this) - Name - Date of Capabilities of the Patient Portal: - Message some providers - View upcoming appointments - Access your health summary, medical history, and visit history - View current conditions and allergies - View procedure and lab results - View your medications, including guidelines, side effects, and precautions - Complete pre-appointment questionnaires requested by your provider - Ready summary reports of your office visits and procedures To access the Patient Portal Mobile [employer], follow these directions: - Search [employer] in the [employer] Store or [employer] - Download the Raquel - Search for [facility] - Enter your login/password Prescriptions: New amoxicillin-pot clavulanate 875-125 mg tablet 1 tab PO BID 7 Days Qty: 14 0RF No Action cephalexin [Keflex] 500 mg capsule 500 mg PO QID Qty: 28 0RF naproxen 500 mg tablet 500 mg PO BID PRN (Reason: pain) Qty: 20 0RF oxycodone 5 mg tablet 5 mg PO TID PRN (Reason: pain) Qty: 14 0RF Rx Instructions: tramadol is not working please stop Referrals: Kathrine Gongora PA [Primary Care Provider, Internal Medicine] Interventions: ED Discharge Assessment Last Done: 11/08/24 15:56 Discharge Date/Time: 11/08/24 15:57 Print Language: Croatian
[2024-11-08 11:31] LABS: MANUAL DIFF FLAG NO
[2024-11-08 11:37] LABS: Hematocrit 38.2 % (42.0-52.0); Hemoglobin 12.8 g/dl (14.0-18.0); Imm Gran Abs Auto 0.03 X10*3/uL (0.00-0.03); Imm Gran Pct Auto 0.4 % (0.0-0.4); Lymphocytes Absolute Auto 1.6 X10*3/uL (1.2-4.9); Mean Corpuscular HGB Conc 33.5 g/dl (31.0-36.0); Mean Corpuscular Hemoglobin 30.8 pg (27.0-33.0); Mean Corpuscular Volume 92.0 fL (80.0-98.0); NRBC Abs Auto 0.000 X10*3/uL (0.0-0.012); NRBC Pct Auto 0.0 /100WBC (0.0-0.2); Platelet Count 225 X10*3/uL (160-400); Red Blood Count 4.15 X10*6/uL (4.60-5.80); White Blood Count 6.9 X10*3/uL (4.8-10.8)
[2024-11-08 11:43] LABS: INTERNATIONAL NORM RATIO 1.0 (0.9-1.1); Prothrombin Time 11.6 SEC (10.9-12.4)
[2024-11-08 11:52] LABS: Alanine Aminotransferase 16 U/L (0-40); Albumin Level 3.9 g/dL (3.5-5.0); Alkaline Phosphatase 57 U/L (39-117); Anion Gap 10 (12-20); Aspartate Amino Transferase 19 U/L (5-37); Blood Urea Nitrogen 16 mg/dL (9-16); Calcium 8.4 mg/dL (8.4-10.2); Carbon Dioxide 25 mmol/L (22-29); Chloride 110 mmol/L (96-108); Creatinine Clr Calc Pharmacy 62.0; Estimated Glomerular Filt Rate > 60; Magnesium 1.9 mg/dL (1.6-2.6); Potassium 4.5 mmol/L (3.3-5.1); Sodium 140 mmol/L (135-145); Total Protein 6.6 g/dL (6.5-8.0)
--- NOTE | 2024-11-08 12:15 | PC.NURSE ---
patient returned from CT at this time. patient remains awake, alert, and oriented. answering questions/following commands appropriately. bleeding remains controlled. vital signs remain stable/WNL. 2 units of PRBCs continues to infuse at this time @ 350mls/hr per provider order. no complications noted. pt remains on RA w/o difficulty. no sob/wob noted. respirations even/unlabored. family bedside for support. plan of care ongoing. call blackburn placed within reach.
--- NOTE | 2024-11-08 12:40 | PC.NURSE ---
pt presents to the ED via EMS as a witnessed fall while attempting to get his phone checked at [employer]. patient reports tripping over curb/falling forward onto the curb. +headstrike, -loc, -thinners (on celebrex). pt denied any neck/mak pain. c-collar in place via EMS. upon ED arrival - pt noted to have uncontrolled bleeding to laceration on head. neuros intact upon ED arrival. alert and oriented. awake. answering questions/following commands appropriately. vss and up to date. nsr on the cardiac monitor technician. on RA w/o difficulty. provider notified immediately d/t amount of blood loss. during assessment, bandage to affected area removed. large amounts of blood noted to be coming from site. suction applied to affected area w/ minimal effect. silver nitrate overridden/applied to affected area w/ no effect. approximately 600ml of blood loss noted to suction canister prior to 10 juanita being applied to affected area by MD. patient had 2 witnessed vasovagal episodes during event. patient then became hypotensive. additional IV access placed. bilateral 18gIVs in the ACs w/ an 18gIV in the left hand. patient then required emergency transfusion of 2 units PRBCs. PRBCs administered upon immediate release. patient then transferred to CT w/ PA/RN/tech. no complications noted during transport. patient transported back to ED w/o difficulty.
--- NOTE | 2024-11-08 13:20 | PC.NURSE ---
repeat labs obtained s/p 2 units of PRBCs infusion. pt otherwise remains in no apparent distress. awake/alert/oriented. vss and up to date. nsr on the equipment monitor phototypesetting. on RA w/o difficulty. no sob/wob noted. respirations even/unlabored. family bedside for support. plan of care ongoing.
[2024-11-08 13:24] LABS: MANUAL DIFF FLAG NO
[2024-11-08 13:27] LABS: Hematocrit 41.0 % (42.0-52.0); Hemoglobin 14.1 g/dl (14.0-18.0); Imm Gran Abs Auto 0.06 X10*3/uL (0.00-0.03); Imm Gran Pct Auto 0.5 % (0.0-0.4); Lymphocytes Absolute Auto 1.4 X10*3/uL (1.2-4.9); Mean Corpuscular HGB Conc 34.4 g/dl (31.0-36.0); Mean Corpuscular Hemoglobin 30.9 pg (27.0-33.0); Mean Corpuscular Volume 89.7 fL (80.0-98.0); NRBC Abs Auto 0.000 X10*3/uL (0.0-0.012); NRBC Pct Auto 0.0 /100WBC (0.0-0.2); Platelet Count 200 X10*3/uL (160-400); Red Blood Count 4.57 X10*6/uL (4.60-5.80); White Blood Count 12.2 X10*3/uL (4.8-10.8)
[2024-11-08 13:45] LABS: B Type Natriuretic Peptide 76 pg/mL (<100)
--- NOTE | 2024-11-08 14:06 | PC.NURSE ---
affected area on head wrapped w/ ABD pad, curex bandage for safety precautions prior to discharge. patient being discharged w/ family.
[2024-11-08] MEDS: Ampicillin Sodium/Sulbactam Na 1.5 GM in 0.9 % Sodium Chloride 100 ML IV (14:17)
== END 2024-11-08 15:57 | disposition home or self-care (01) ==
PROVIDERS: Physician Assistant Medical; Emergency Provider Emergency Medicine; PCP Physician Assistant
DX: S01.81XA Laceration without foreign body of other part of head, initial encounter (principal); W10.1XXA Fall (on)(from) sidewalk curb, initial encounter; H11.32 Conjunctival hemorrhage, left eye; Y93.89 Activity, other specified; Y92.481 Parking lot as the place of occurrence of the external cause; Y99.9 Unspecified external cause status
CPT/HCPCS: 12014; 36415; 36430; 70450; 70486; 71250; 72125; 73110; 73130; 74176; 80048; 80076; 83735; 83880; 85025; 85610; 86850; 86900; 86901; 86920; 96365; 99285; 99291; J0295; P9016

== ENCOUNTER → 2024-11-08 11:23 | Outpatient (BNV) | payer MEDICARE, SELFPAY | PROVIDERS: PCP Physician Assistant; Visit Provider Radiology Diagnostic Radiology | DX: S01.81XA Laceration without foreign body of other part of head, initial encounter (principal); W01.0XXA Fall on same level from slipping, tripping and stumbling without subsequent striking against object, initial encounter; I25.10 Atherosclerotic heart disease of native coronary artery without angina pectoris; S05.12XA Contusion of eyeball and orbital tissues, left eye, initial encounter; M19.041 Primary osteoarthritis, right hand; M19.031 Primary osteoarthritis, right wrist; Z87.81 Personal history of (healed) traumatic fracture | CPT/HCPCS: 70450; 70486; 71250; 72125; 73110; 73130; 74176 ==

== ENCOUNTER 2024-11-15 14:01 | Emergency (ER) | payer MEDICARE, SELFPAY ==
[2024-11-15 14:04] VITALS: BP 158/67; PULSE 81; RESP 16; TEMP 37.1; O2SAT 99; BMI 30.8
--- NOTE | 2024-11-15 14:04 | ED_ITS ---
HPI - General Adult General Chief complaint: Eye Problems Stated complaint: recheck from accident of last week Time Seen by Provider: 11/15/24 14:08 Source: patient and family Mode of arrival: ambulatory Limitations: no limitations History of Present Illness ED Provider: Silvia Fernández HPI narrative: This is an 84-year-old male who has a history of right eye cataract, GERD, hypertension who was seen in the emergency room on November 08 for mechanical fall with a laceration of the left forehead. During his ER visit he apparently had quite a bit of bleeding of the laceration with a subsequent vasovagal episode requiring 2 units of PRBCs. The patient's laceration was closed with juanita and placed on pptx antibiotics. He had a CT head, facial bones and cervical spine which were negative and he was discharged home with PCP follow-up. Family and patient report that the left eye was initially very swollen. The swelling has improved but there does appear to be some drainage from the eye which they describe as bloody as well as a foreign body sensation to the left eye (inner aspect). The patient denies any visual change. No headache, no eye pain. No vomiting. He has a follow-up on Sunday with his primary care doctor after his ER visit. Related Data Previous Rx's ?Medication ?Instructions ?Recorded cephalexin 500 mg capsule (Keflex) 500 mg PO QID #28 c aps 02/22/20 naproxen 500 mg tablet 500 mg PO BID PRN pain #20 t abs 02/22/20 oxycodone 5 mg tablet 5 mg PO TID PRN pain #14 tab s 11/03/20 amoxicillin 875 mg-potassium 1 tab PO BID 7 days #14 t abs 11/08/24 clavulanate 125 mg tablet cephalexin 500 mg capsule 500 mg PO BID #14 caps 11/15 mupirocin 2 % topical ointment 1 appl topical BID #15 grams 11/15/24 (Centany) Allergies Allergy/AdvReac Type Severity Reaction Status Date / Time diphenhydramine (From Allergy Hives Verified 11/15/24 14:05 Benadryl) omeprazole Allergy Hives Verified 11/15/24 14:05 Review of Systems 2 Review of Systems: Yes all other systems are reviewed and are negative Constitutional: Constitutional: Reports no additional constitutional complaints, Denies body ache(s), Denies chills, Denies fever(s), Denies headache(s) and Denies weakness Eyes: Eyes: Reports no additional eye complaints, Denies blurry vision, Denies change in vision, Reports eye discharge, Denies eye pain, Reports requires corrective lenses and Denies photophobia ENT: Reports system reviewed and no additional complaints, except as documented, Denies dizziness, Denies headache(s), Denies nasal congestion, Denies nasal discharge and Denies neck pain Cardiovascular: Cardiovascular: Reports no additional cardiovascular complaints, Denies chest pain, Denies leg edema and Denies dyspnea Respiratory: Respiratory: Reports no additional respiratory complaints, Denies cough and Denies dyspnea Gastrointestinal: Gastrointestinal: Reports no additional gastrointestinal complaints, Denies abdominal pain, Denies diarrhea, Denies nausea and Denies vomiting Genitourinary: Genitourinary: Denies urinary incontinence Musculoskeletal: Musculoskeletal: Reports no additional musculoskeletal complaints, Denies back pain, Denies arthralgias, Denies joint swelling, Denies neck pain, Denies numbness and Denies tingling Integumentary/Breasts: Skin/Breast: Reports system reviewed and no additional complaints, except as docu and Denies rash Neurologic: Reports system reviewed and no additional complaints, except as documented, Denies Abnormal speech present, Denies dizziness, Denies headache(s), Denies numbness, Denies tingling and Denies weakness PMFSH Past Medical History Attestation statement: The following information was validated with the patient. Source: old records reviewed and nursing notes reviewed Medical History Arthritis Surgical History History of hip replacement Social History Social History Alcohol intake: current Alcohol intake frequency: holidays/special occasions only Alcohol type: beer and wine Patient Tobacco Use Status: Never used Tobacco Use of substances other than those prescribed or required for medical reasons: Unknown Advance Directives: No Advance Directives Information Provided: No Physical Exam ED Vital Signs: Vital Signs - 24 hr 11/15/24 14:04 11/15/24 14:18 Temperature 98.7 F 98.0 F Pulse Rate 81 77 Respiratory Rate 16 18 Blood Pressure 158/67 H 124/74 Pulse Oximetry 99 98 Oxygen Delivery Method Room Air Room Air BMI result Body Mass Index 30.8 Const General: cooperative, healthy appearing, comfortable and no acute distress Orientation/consciousness: patient oriented x3 Limitations: no limitations HENMT Other: No hemotympanum Head: Yes normal to inspection, No Rivera's sign and No raccoon eyes Head images: 2 1. There is a laceration with juanita present. There is some mild surrounding erythema, swelling and purulent drainage from the site. Ears: hearing grossly normal bilaterally and TM's normal bilaterally General nose exam: Normal external nose present Face and sinus: Yes normal facial exam Mouth: Normal oral and palatal mucosa present Throat: Yes posterior oropharynx normal Eyes Other: The right pupil is distorted and nonreactive which is patient's baseline secondary to previous injury. The visual field is normal in the right eye. There there is swelling to the left superior and inferior periorbital area. The left pupil is 3mm and reactive. Anterior chambers normal. There is moderate scleral swelling and in the inner canthus there is expulsion of the scleral with serosanguineous drainage. There is conjunctival inject. The visual caba are normal on the left eye. EOM normal Fluorescein exam was done with no corneal abrasion or foreign body noted IOP left eye 10.7, IOP right eye 9.1 See documented visual acuity. Patient did not have his corrective lenses available Visual Caba: normal visual caba by confrontation Alignment and Position: alignment normal Pupils: Equal, round and reactive pupils present Direct Ophthalmoscopy: no photophobia and No photophobia Neck Neck: Yes normal visual inspection Chest Chest palpation & inspection: normal inspection of the chest Resp Effort & Inspection: normal respiratory effort Auscultation: clear to auscultation bilaterally Cardio Rate: regular rate Rhythm: regular rhythm Peripheral pulses: Peripheral pulses 2+ throughout GI Inspection: Yes normal to inspection Palpation (GI): Soft to palpation and nontender Auscultation: normal bowel sounds Back/Spine/Pelvis Thoracic/Lumbar Spine: thoracic and lumbar spine normal to inspection Skin General skin exam: no rashes or lesions noted Neuro General: patient oriented x3, moves all extremities, no focal motor deficits and normal sensation to monofilament Cranial nerves: Yes CN's II-XII intact bilaterally, Yes Equal, round and reactive pupils present, Yes Bilaterally intact EOM present, Yes Nystagmus not present, Yes Normal facial strength present and Yes Midline tongue present Cognition (Neuro): normal cognition Speech: No Abnormal speech present Gait exam (Neuro): Normal gait present Motor exam (neuro): 5/5 motor strength present throughout Sensory Exam: Normal double simultaneous stimulation for sensation Extrem General: Yes normal to inspection Course Course Course Narrative: On discharge patient was complaining of urinary urgency, frequency and nocturia. He had urinalysis which showed UTI. He has a urologist and has an upcoming appointment. He does have a history of BPH. Will continue with plan to discharge him with cephalexin. Reviewed worrisome signs and symptoms of when to return to the emergency room. Comfortable plan for discharge home Medications Administered Discontinued Medications Generic Name Dose Route Start Last Admin Trade Name Radha PRN Reason Stop Dose Admin Bacitracin 1 appl 11/15/24 14:59 11/15/24 15:13 Bacitracin Oint 0.9 Gm Packet TOPICAL 11/15/24 15:00 1 appl ONCE ONE Administration Protocol Fluorescein Sodium 1 strip 11/15/24 14:11 11/15/24 14:20 Fluorescein Sodium Strip EYE-LEFT 11/15/24 14:12 1 strip ONCE ONE Administration Tetracaine HCl 1 drop 11/15/24 14:11 11/15/24 14:20 Tetracaine Hcl/Pf 0.5% Oph Arianna 4 Ml Drops EYE-LEFT 11/15/24 14:12 1 drop ONCE ONE Administration Medical Decision Making Medical Decision Making [facility] Narrative: This is an 84-year-old male who has a history of right eye cataract, GERD, hypertension who was seen in the emergency room on November 08 for mechanical fall with a laceration of the left forehead. During his ER visit he apparently had quite a bit of bleeding of the laceration with a subsequent vasovagal episode requiring 2 units of PRBCs. The patient's laceration was closed with juanita and placed on pptx antibiotics. He had a CT head, facial bones and cervical spine which were negative and he was discharged home with PCP follow-up. Family and patient report that the left eye was initially very swollen. The swelling has improved but there does appear to be some drainage from the eye which they describe as bloody as well as a foreign body sensation to the left eye (inner aspect). The patient denies any visual change. No headache, no eye pain. No vomiting. He has a follow-up on Sunday with his primary care doctor after his ER visit. On exam there is left periorbital swelling. There is also scleral swelling and conjunctival injection. There is more focal swelling on the medial canthus area and there is some slight serosanguineous fluid noted. The pupil is reactive. There is normal EOM and visual caba are intact. See chart visual acuity. No signs of corneal abrasion or foreign body. The IOP is are normal bilaterally. I believe that this is swelling secondary to recent trauma. I have examined the patient with Dr. Shook who agrees with the patient can be discharged home with artificial tears, elevation of the head of the bed and ice and follow-up with his outpatient acoustical material worker. In addition he has a laceration with juanita that are present that appears to have some signs of infection. There is no drainable fluid collection. The patient did take his last Augmentin this morning. I will recommend that he initiate cephalexin and use topical mupirocin with daily dressing changes. The area was cleansed and a new dressing was placed today. He has follow-up on Sunday with his primary care doctor. Reviewed worrisome signs and symptoms of when to return to the emergency room. Comfortable with plan for discharge home Differential Diagnosis Differential Diagnoses: The differential diagnosis associated with the presentation includes Acute glaucoma, corneal agree, corneal foreign body, globe rupture, orbital fracture Wound infection Admission/Observation Consideration of admission/observation: Escalation of care including admission/observation considered Lab Data MDM Lab Attestation statement: I reviewed the patient's lab results. Labs: Lab Results 11/15/24 Range/Units 15:33 Urine Color Yellow Urine Appearance Clear Urine pH 6.5 (5.0-9.0) Ur Specific [place] 1.020 (1.005-1.025) Urine Protein Negative (Neg-Trace) mg/dL Urine Glucose (UA) Negative (Negative) mg/dL Urine Ketones Negative (Negative) mg/dL Urine Blood Trace H (Negative) Urine Nitrite Negative (Negative) Ur Leukocyte Esterase Small (1+) H (Negative) Urine RBC 11-20 H (0-2) /HPF Urine WBC 11-20 H (0-5) /HPF Ur Squamous Epith Cells 0-2 (0-2) /HPF Urine Bacteria None Seen (None Seen) Hyaline Casts 0-2 (0-2) /LPF Independent Historian Clinical information obtained from an independent historian. History obtained from or confirmed by: Spouse Tests considered The following testing was considered but not selected: CT Discharge Plan Discharge Clinical Impression: Contusion of eye, left, Acute UTI Patient Disposition: Home, Self-Care Instructions: Facial Contusion (ED), Urinary Tract Infection in Older Adults (ED) Additional Instructions: The eye is swollen. There is no sign of an abrasion on the eye or a foreign body within the eye. Your eye pressures are normal. Please keep the eye lubricated with artificial tears. You may apply ice to the eye area and keep the head of the bed elevated. Please call your acoustical material worker to follow-up. Keep your appointment on Sunday with her primary care doctor. Have him check your juanita. There is a mild infection at the staple site. We are continuing a another round of antibiotics and recommend that you apply a topical antibiotic ointment and dressing daily Return for vision change, vomiting, headache, eye pain Prescriptions: New cephalexin 500 mg capsule 500 mg PO BID Qty: 14 0RF mupirocin [Centany] 2 % ointment 1 appl topical BID Qty: 15 0RF No Action cephalexin [Keflex] 500 mg capsule 500 mg PO QID Qty: 28 0RF naproxen 500 mg tablet 500 mg PO BID PRN (Reason: pain) Qty: 20 0RF oxycodone 5 mg tablet 5 mg PO TID PRN (Reason: pain) Qty: 14 0RF Rx Instructions: tramadol is not working please stop amoxicillin-pot clavulanate 875-125 mg tablet 1 tab PO BID 7 Days Qty: 14 0RF Referrals: Kathrine Gongora PA [Primary Care Provider, Internal Medicine] - 3 days Print Language: Gabonese
--- OUTSIDE RECORDS SUMMARY | 2024-11-15 14:14 | XMS_ITS | Patient Health Record ---
Author Organization [facility] Address [address] [place] [id number] Care Team Providers Care Multicultural Internship Name Role Phone Kendra JUDD, Ministerio Primary Care Provider Reji Cam Unavailable [phone] Kavin JUDD, Oscar Unavailable Unavailable Allergies Allergen (clinical drug ingredient) Drug/Non Drug Allergy documented on EMR Reaction Allergy Type Onset Date Status omeprazole Omeprazole itching Drug Allergy Activ e Reason For Referral No Information Medications Medication SIG (Take, Route, Frequency, Duration) Notes Start Date End Date Status Ranitidine HCl 150 MG TK 1 T PO BID Oral for 30 Active Carvedilol 6.25 MG TK 1 T PO BID Oral for 90 Active Calcium 600 600 MG Orally A ctive [facility] Arthritis Pain Relief 650 MG 2 tablets as needed Orally twice a day Active Lisinopril 5 MG TK 1 T PO D Oral for 90 Active Lansoprazole 30 MG 1 capsule Orally BID for 10 days 08/18/2017 Active Biaxin 500 MG 1 tablet Orally BID for 10 day(s) 08/18/2017 Active Amoxicillin 500 MG 2 capsules Orally BI D for 10 day(s) 08/18/2017 Active Iron 325 (65 Fe) MG 1 tablet Orally Once a day Active Multivitamin Gummies Adult - Orally Active Vitamin C - Orally Active Social History Tobacco Use: Social History Observation Description Date Details (start date - stop date) Never Smoker NA - NA Tobacco Use/Smoking Question Answer Notes Patient is a nonsmoker Alcohol Screen Question Answer Notes Did you have a drink contain ing alcohol in the past year? Yes How often did you have a dri nk containing alcohol in the past year? Monthly or less (1 point) How many drinks did you have on a typical day when you were drinking in the past year? 1 or 2 drinks (0 point) How often did you have 6 or more drinks on one occasion in the past year? 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 PYLORI IGG 07/31/2017 Insurance Providers Payer Name Payer Address Payer Phone Subscriber Number Group Number Insured Name Patient Relationship to Insured Coverage Start Date Coverage End Date MEDICARE OF [place] [address] [place] [address] [id number] THEROUX, REAL Self - patient is the insured [employer] ATT[employer] CLAIMS [address] [place] [address] [phone] [id number] THEROUX, REAL Self - patient is the insured Medical (General) History Medical History History ICD Code UGI Bleed in 04/2015--Duodena l ulcers--treated endoscopically; had a similar hospitalization in 2006 Denies SC,DM,CVA,Lung disease,renal dise ase Hx of colon polyps--at [facility] ter HTN Surgical History Surgery Date(Month/Year) Right hip replacement 2011 Shoulder surgery Ankle surgery-left Tonsillectomy Cataracts Bilateral carpal tunnel May be having a right knee replacement l ater in 2017
[2024-11-15 14:18] VITALS: BP 124/74; PULSE 77; RESP 18; TEMP 36.7; O2SAT 98
[2024-11-15] MEDS: Fluorescein Sodium STRIP 1 STRIP EYE-LEFT (14:20)
[2024-11-15] MEDS: Tetracaine HCl/PF 0.5% Oph Sol 4 ML DROPS 1 DROP EYE-LEFT (14:20)
[2024-11-15 15:48] LABS: Appearance Urine Clear; Glucose Urine UA Negative (Negative); PH 6.5 (5.0-9.0); Specific Gravity - Urine 1.020 (1.005-1.025); UMIC TRIGGER UACC YES
[2024-11-15 16:04] LABS: UACC Culture Trigger YES
[2024-11-15 16:25] VITALS: BP 146/81; PULSE 68; RESP 18; TEMP 36.8; O2SAT 96
== END 2024-11-15 16:26 | disposition home or self-care (01) ==
PROVIDERS: Nurse Practitioner Family; Emergency Provider Emergency Medicine; PCP Physician Assistant
DX: S05.12XA Contusion of eyeball and orbital tissues, left eye, initial encounter (principal); W01.0XXA Fall on same level from slipping, tripping and stumbling without subsequent striking against object, initial encounter; N39.0 Urinary tract infection, site not specified; Y93.89 Activity, other specified; Y92.9 Unspecified place or not applicable; Y99.9 Unspecified external cause status; Z79.899 Other long term (current) drug therapy
CPT/HCPCS: 81001; 81003; 87086; 99283; 99284